=== PATIENT | male | born 1975 | race Two or more races ===

== ENCOUNTER 2020-05-01 08:44 | Emergency (ER) | payer MEDICAID ==
[~2020-05-01] VITALS: Ht 170.2 cm; Wt 77.1 kg
[2020-05-01 09:50] VITALS: BP 148/96
== END 2020-05-01 12:01 | disposition home or self-care (01) ==
LOC: ER 08:44
DX: M54.16 Radiculopathy, lumbar region (principal); E86.0 Dehydration; F10.10 Alcohol abuse, uncomplicated; F41.9 Anxiety disorder, unspecified
CPT/HCPCS: 72131; 93971

== ENCOUNTER 2023-02-25 10:43 | Emergency (ER) | payer MEDICAID ==
[~2023-02-25] VITALS: Ht 172.7 cm; Wt 76.3 kg
[2023-02-25 11:37] LABS: Urine Bacteria FEW /hpf (None Seen); Urine Blood Negative /uL (Negative); Urine Specific Gravity 1.015 (1.001-1.035); Urine WBC 2 /hpf (0 - 3)
[2023-02-25 12:31] VITALS: BP 136/100
[2023-02-25] MEDS ORDERED: CIPR500T4 PO (13:00)
== END 2023-02-25 13:06 | disposition home or self-care (01) ==
LOC: ER 10:43
DX: R78.81 Bacteremia (principal)
CPT/HCPCS: 81001; 93005